=== PATIENT | female | born 1995 | race Hispanic/Latino ===

== ENCOUNTER 2019-01-06 20:45 | Outpatient (CLI) | payer MEDICAID ==
[2019-01-06] MEDS ORDERED: LACTATED RINGERS 500 ML IV ONE (20:59)
[2019-01-06 21:46] LABS: Bilirubin,Urine NEG (Negative); Blood,Urine NEG (Negative); Color,Urine Yellow (Yellow); Mucus,Urine FEW /HPF; Protein,Urine <15 mg/dL mg/dL (Negative); Urobilinogen,Urine < 2.0 mg/dL (<2.0)
[2019-01-06 22:24] VITALS: BP 111/68
--- NOTE | 2019-01-06 23:21 | Ultrasound Report ---
PROCEDURE: US OB FOLLOW UP TECHNIQUE: Real-time limited sonographic examination was performed for evaluation of placenta for ea ch fetus with image documentation (1 or more fetuses). HISTORY: spotting at 28 weeks COMPARISONS: None . FINDINGS: MATERNAL Uterus: Within normal limits . Cervix length:, 3 cm. Internal Os: closed . FETUS IUP: Single living intrauterine . Position: Breech . Placental position: Posterior, without previa . Amniotic fluid volume: Normal Heart rate and rhythm: 143 BPM, Regular . anatomic survey: Normal . MEASUREMENTS BPD: 7.1 cm . HC: 26.5 cm . AC: 24.2 cm . FL: 5.3 cm . Mean Gestational Age (composite criteria): 28 weeks 4 days . Ratio biometry: Normal . Estimated Weight: 1230 grams Interval growth: Appropriate . Estimated Due Date (earliest scan): 03/27/2019 . IMPRESSION: 1. Single living intrauterine gestation at approximately 28 weeks 4 days . 2. EDC by US 26/11/2018 . 3. The placenta is along the posterior uterus with no evidence of previa This document is electronically signed by Leia Kapoor DO., January 06 2019 11:03:47 PM ET
== END 2019-01-06 23:00 | disposition home or self-care (01) ==
LOC: TRG 20:45
PROVIDERS: ATTEND Obstetrics & Gynecology
DX: O47.03 False labor before 37 completed weeks of gestation, third trimester (principal); O99.513 Diseases of the respiratory system complicating pregnancy, third trimester; J45.909 Unspecified asthma, uncomplicated; Z3A.28 28 weeks gestation of pregnancy
CPT/HCPCS: 76816; 81001; 87086

== ENCOUNTER 2019-03-13 21:44 | Outpatient (CLI) | payer MEDICAID ==
[2019-03-13] MEDS ORDERED: LACTATED RINGERS 1,000 ML IV SCH (23:45)
[2019-03-13] MEDS ORDERED: ZOFRAN IV ONE (23:50)
[2019-03-14 00:14] VITALS: BP 116/71
== END 2019-03-14 01:40 | disposition home or self-care (01) ==
LOC: TRG 21:44
PROVIDERS: ATTEND Obstetrics & Gynecology
DX: O62.9 Abnormality of forces of labor, unspecified (principal); O24.419 Gestational diabetes mellitus in pregnancy, unspecified control; Z3A.38 38 weeks gestation of pregnancy
CPT/HCPCS: 96361; 96365; J2405; J7120; 59025